=== PATIENT | male | born 1965 | race Caucasian/White ===

== ENCOUNTER 2020-08-09 07:40 | Outpatient (CLI) | payer MEDICARE, MEDICAID, OTHER ==
[2020-08-10 12:28] LABS: SARS-CoV-2 MS2 Positive; SARS-CoV-2 N Gene Negative; SARS-CoV-2 S Gene Negative; SARS-CoV-2 by NAA Not Detected (NotDetected); SARS-CoV-2 orf1ab Negative
== END 2020-08-09 07:41 | disposition home or self-care (01) ==
LOC: LABBT 07:40
PROVIDERS: ATTEND Internal Medicine Gastroenterology
DX: Z20.828 Contact with and (suspected) exposure to other viral communicable diseases (principal); Z80.0 Family history of malignant neoplasm of digestive organs; Z86.010 Personal history of colon polyps
CPT/HCPCS: 87635; U0003

== ENCOUNTER 2020-08-14 09:42 | Day surgery (SDC) | payer MEDICARE, MEDICAID ==
[2020-08-09 11:53] VITALS: BMI 25.9
[2020-08-14] MEDS ORDERED: PROPOFOL 200 MG/20 ML VIAL ONE (12:28)
[2020-08-14] MEDS ORDERED: Lidocaine 1% PF 5 ML VIAL ONE (12:28)
--- NOTE | 2020-08-14 16:58 | OP ---
DATE OF PROCEDURE: 08/14/2020 PROCEDURE PERFORMED: Colonoscopy. PREMEDICATION: Given by Anesthesiology Department. PREPROCEDURE DIAGNOSIS: History of tubular adenoma removed on colonoscopy 6 years ago. POSTPROCEDURE DIAGNOSIS: Normal colonoscopy. DESCRIPTION OF PROCEDURE: Written consents were obtained prior to procedure. After adequate sedation, rectal exam performed was normal. The colonoscope was introduced through the various segments to the cecum. The ileocecal valve and appendiceal orifice were visualized and appeared normal. The cecum, ascending colon, hepatic flexure, transverse colon, splenic flexure, descending colon, rectosigmoid colon all appeared normal. Retroflexion was normal. The patient tolerated the procedure well. ASSESSMENT: Normal colonoscopy. RECOMMENDATION: Repeat colon surveillance exam in 5 years. Job ID: [id number]
== END 2020-08-14 12:30 | disposition home or self-care (01) ==
LOC: SDC 09:42
PROVIDERS: ATTEND Internal Medicine Gastroenterology
PROC: 0DJD8ZZ Inspection of Lower Intestinal Tract, Via Natural or Artificial Opening Endoscopic (ICD-10-PCS; principal; 2020-08-14)
DX: Z12.11 Encounter for screening for malignant neoplasm of colon (principal); Z86.010 Personal history of colon polyps; Z80.0 Family history of malignant neoplasm of digestive organs; Z79.899 Other long term (current) drug therapy
CPT/HCPCS: J2704